=== PATIENT | male | born 1995 | race Caucasian/White ===

== ENCOUNTER 2020-06-22 22:34 | Emergency (ER) | payer SELFPAY ==
[~2020-06-22] VITALS: Ht 182.9 cm; Wt 63.5 kg
--- NOTE | 2020-06-22 22:51 | NUR ---
BIBS FOR C/O POSTERIOR HEAD 1CM LACERATION AND UPPER BACK ABRASION S/P SLIP AND FALL IN THE SHOWER, DENIED KO. PT AMBULATORY TO BED 10. WAS PLACED ON A MONITOR .VSS. EMT AT BED SIDE TO CLEAN THE LAC. WILL CONT TO MONITOR
--- NOTE | 2020-06-22 23:54 | NUR ---
Pt a, ox4, sitting in bed comfortably, denieed any pain or discomfort. rec'd one staple on the posterior head laceration with no complications. pt is medically stable for D/C per MD. Patient discharged to home in stable condition. Written and verbal after care instructions given. Patient verbalizes understanding of instruction. friend will provide ride to the pt.
[2020-06-22 23:57] VITALS: BP 131/78
== END 2020-06-22 23:57 | disposition home or self-care (01) ==
LOC: ER 22:34
DX: S01.01XA Laceration without foreign body of scalp, initial encounter (principal); R51.9 Headache, unspecified; W18.39XA Other fall on same level, initial encounter; Y93.89 Activity, other specified; Y92.89 Other specified places as the place of occurrence of the external cause; Y99.8 Other external cause status
CPT/HCPCS: 12001; 70450; 99284; A6403